=== PATIENT | male | born 1995 | race Two or more races ===

== ENCOUNTER 2017-11-05 23:11 | Emergency (ER) | payer OTHER ==
--- NOTE | 2017-11-05 23:23 | EDPHY ---
H & P Stated Complaint: CHEST PAIN INCREASED WITH DEEP BREATH Source: Patient Exam Limitations: No limitations - Personal History Current Tetanus/Diphtheria Vaccine: Unsure Current Tetanus Diphtheria and Acellular Pertussis (TDAP): Unsure - Medical/Surgical History Hx Asthma: No Hx Chronic Respiratory Disease: No Hx Diabetes: No Hx Cardiac Disease: No Hx Renal Disease: No Hx Cirrhosis: No Hx Alcoholism: No Hx HIV/AIDS: No Hx Splenectomy or Spleen Trauma: No Other PMH: DENIES - Social History Smoking Status: Light smoker Time Seen by Provider: 11/05/17 23:22 HPI/ROS: HPI: This is a 22-year-old male who presents with Chief Complaint: CHEST PAIN INCREASED WITH DEEP BREATH Location: Left side Chest Quality: Pain Duration: Since last night Signs and Symptoms: no shortness of breath at rest, no shortness of breath on exertion, no cough, no palpitations, no lower extremity edema, no wheezing, no orthopnea, no paroxysmal nocturnal dyspnea, no fever, no injury/trauma, no hemoptysis, no carpal pedal spasms Timing: Acute, constant Severity: [id number] Context: Patient is generally healthy, smokes tobacco intermittently, presents with complaints of sudden onset while study last night of left anterior chest pain, nonradiating in nature. He describes as dull, constant, sharp in nature. He reports that the pain worsens with inspiration. Pain is not reproducible with palpation. Denies any fever/cough/shortness of breath/lower extremity edema. Denies any recent upper respiratory symptoms. He is an international student from [facility]. Traveled during spring. Patient reports that he has not been under any more stress than usual. Denies any family cardiac history. Denies any heavy lifting. Right-hand dominant. Denies any indigestion/food intolerances. Modifying Factors: None Comment: ROS: see HPI Constitutional: No fever, no chills, no weight loss Eyes: No blurred vision Respiratory: No shortness of breath, no cough Cardiovascular: No chest pain, no palpitations, no lower extremity edema Gastrointestinal: No nausea, no vomiting, no diarrhea Genitourinary: No dysuria Extremities: No myalgias Neurologic: No weakness, no numbness Skin: No rashes Hematologic: No bruising, no bleeding MEDICAL/SURGICAL/SOCIAL HISTORY: Medical history: Generally healthy. Does not take any regular medications. Surgical history: Denies Social history: [facility] [place] student. Family history noncontributory. + intermittent tobacco use CONSTITUTIONAL: Slightly anxious, intermittent adult male, awake and alert, no obvious distress HEENT: Atraumatic and normocephalic, PERRL, EOMI. Tympanic membranes clear. Oropharynx clear, no exudate and moist pink mucosa. Airway patent. No lymphadenopathy. No meningismus. Cardiovascular: Normal S1/S2, regular rate, regular rhythm, without murmur rub or gallop. PULMONARY/CHEST: Symmetrical and nontender. Clear to auscultation bilaterally. Good air movement. No accessory muscle usage. ABDOMEN: Soft, nondistended, nontender, no rebound, no guarding, no peritoneal signs, no masses or organomegaly. No CVAT. EXTREMITIES: 2/2 pulses, strength 5/5, no deformities, no clubbing, no cyanosis or edema. NEUROLOGICAL: no focal neuro deficits. GCS 15. SKIN: Warm and dry, no erythema. no rash. Good capillary refill. (Gala Fuentes) Constitutional: Initial Vital Signs Temperature (C) 36.7 C 11/05/17 23:13 Heart Rate 91 11/05/17 23:13 Respiratory Rate 18 11/05/17 23:13 Blood Pressure 164/94 H 11/05/17 23:13 O2 Sat (%) 98 11/05/17 23:13 O2 Delivery Mode Room Air Allergies/Adverse Reactions: No Known Allergies Allergy (Unverified 11/05/17 23:16) Home Medications: Medication Instructions Recorded NK [No Known Home Meds] 11/05/17 Medical Decision Making - Diagnostics EKG Interpretation: 12 lead EKG: Indication: Chest pain Rhythm: Normal sinus rhythm, rate 79 beats per minute Maynard: Normal Intervals: Normal QRS: Normal ST segments: Normal INTERPRETATION: Narrow, total QRS complexes. No acute ischemic changes. No arrhythmias The 12 lead EKG was interpreted by myself and with attending (Gala Fuentes) Imaging Results: Imaging Impressions Chest X-Ray 11/05/17 23:27 Impression: No significant radiographic abnormality. Specifically, negative for pneumothorax. ED Course/Re-evaluation: EKG, chest x-ray, labs ordered-will add D-dimer to rule out VTE Vital signs reviewed upon arrival; stable. EKG shows no acute ischemic changes/arrhythmias FAHAD risk factor equals low. Heart score equals=low score 2352: Called by radiologist, Dr. Alfonso Marte, who advised that chest x-ray shows no signs of opacity, effusion, pneumothorax, widened mediastinum. Labs reviewed and no signs of anemia/SHIMA/VTE/elevated liver enzymes/leukocytosis Reassurance provided and advised supportive care. Suspect anxiety related. Given Ativan with adequate relief of symptoms. This patient was seen under the supervision of my secondary supervising physician. I evaluated care for this patient independently. Discussed this patient with Dr. Huston who did not see the patient. (Gala Fuentes) PHYSICIAN DOCUMENTATION: The patient was evaluated and managed by the Physician Director Payer. My co- signature indicates that I have reviewed this chart and I agree with the findings and plan of care as documented. I am the secondary supervising physician. (Johanne Huston) Differential Diagnosis: Chest pain including but not limited to myocardial ischemia, pulmonary embolus, chest wall pain, pleural inflammation and pulmonary infectious causes. (Gala Fuentes) - Data Points Laboratory Results: Laboratory Results 11/05/17 23:35 11/05/17 23:35 11/05/17 11/05/17 11/05/17 23:35 23:35 23:35 WBC 6.40 10^3/uL 10^3/uL (3.80-9.50) RBC 7.49 10^6/uL H 10^6/uL (4.40-6.38) Hgb 15.1 g/dL g/dL (13.7-17.5) Hct 48.7 % % (40.0-51.0) MCV 65.0 fL L fL (81.5-99.8) MCH 20.2 pg L pg (27.9-34.1) MCHC 31.0 g/dL L g/dL (32.4-36.7) RDW 17.8 % H % (11.5-15.2) Plt Count 226 10^3/uL 10^3/uL (150-400) MPV TNP Neut % (Auto) 47.9 % % (39.3-74.2) Lymph % (Auto) 38.0 % % (15.0-45.0) [place] % (Auto) 8.6 % % (4.5-13.0) Eos % (Auto) 4.1 % % (0.6-7.6) Baso % (Auto) 1.1 % % (0.3-1.7) Nucleat RBC Rel Count 0.0 % % (0.0-0.2) Absolute Neuts (auto) 3.07 10^3/uL 10^3/uL (1.70-6.50) Absolute Lymphs (auto) 2.43 10^3/uL 10^3/uL (1.00-3.00) Absolute Monos (auto) 0.55 10^3/uL 10^3/uL (0.30-0.80) Absolute Eos (auto) 0.26 10^3/uL 10^3/uL (0.03-0.40) Absolute Basos (auto) 0.07 10^3/uL 10^3/uL (0.02-0.10) Absolute Nucleated RBC 0.00 10^3/uL 10^3/uL (0-0.01) Immature Gran % 0.3 % % (0.0-1.1) Immature Gran # 0.02 10^3/uL 10^3/uL (0.00-0.10) Platelet Estimate ADEQUATE (ADEQ) Hypochromasia 1+ H Microcytic Cells 2+ H Elliptocytes 1+ H Smear Review By Pending D-Dimer < 0.27 ug/mLFEU ug/mLFEU (0.00-0.50) Sodium 144 mEq/L mEq/L (135-145) Potassium 4.0 mEq/L mEq/L (3.5-5.2) Chloride 106 mEq/L mEq/L (97-110) Carbon Dioxide 24 mEq/l mEq/l (22-31) Anion Gap 14 mEq/L mEq/L (8-16) BUN 13 mg/dL mg/dL (7-23) Creatinine 0.9 mg/dL mg/dL (0.7-1.3) Estimated GFR > 60 Glucose 114 mg/dL H mg/dL (70-100) Calcium 9.3 mg/dL mg/dL (8.5-10.4) Total Bilirubin 0.6 mg/dL mg/dL (0.1-1.4) AST 18 IU/L IU/L (17-59) ALT 29 IU/L IU/L (21-72) Alkaline Phosphatase 54 IU/L IU/L (38-126) Total Protein 7.9 g/dL g/dL (6.3-8.2) Albumin 4.7 g/dL g/dL (3.5-5.0) Medications Given: Discontinued Medications Lorazepam (Ativan 1 Mg Prepack#4) 1 btl TAKEDONAVANE EDNOW ONE Stop: 11/06/17 00:04 Last Admin: 11/06/17 00:31 Dose: 1 btl Departure - Departure Disposition: Home, Routine, Self-Care Clinical Impression: Non-cardiac chest pain Condition: Good Instructions: Noncardiac Chest Pain (ED) Additional Instructions: Chest x-ray, EKG and laboratory studies are normal today. Your chest discomfort is not caused by cardiac or lung etiologies. Take Tylenol 650 mg every 4 hours and/or Ibuprofen 600 mg every 8 hours with food as needed for pain. Take Ativan 1 mg every 8 hr as needed for anxiety. Refrain from using tobacco. Establish care with primary care provider. Return to the ER immediately if you experience new, continued or worsened chest pain, chest pain that radiates, chest pain accompanied by exertion or associated with shortness of breath, sweating, nausea, dizziness, back pain, or any other symptoms that concern you. Referrals: Paty Mason MD [Medical Doctor] - As per Instructions
--- NOTE | 2017-11-05 23:40 | CPEKG ---
Heart Rate: 79 RR Interval: 759 P-R Interval: 160 QRSD Interval: 100 QT Interval: 352 QTC Interval: 404 P Bethel: 50 QRS Bethel: 54 T Wave Bethel: 32 EKG Severity - ABNORMAL ECG - EKG Impression: SINUS RHYTHM Electronically Signed By: Johanne Huston 06-Nov-2017 06:04:00
[2017-11-05 23:45] LABS: PLATELET COUNT 226 10^3/uL (150-400)
[2017-11-06] MEDS ORDERED: LORAZEPAM 1 MG PREPACK#4 BTL TAKEHOME ONE (00:03)
[2017-11-06 00:35] VITALS: BP 156/88
== END 2017-11-06 00:34 | disposition home or self-care (01) ==
DX: R07.89 Other chest pain (principal); F17.200 Nicotine dependence, unspecified, uncomplicated